=== PATIENT | male | born 1980 | race American Indian/Alaskan Native ===

== ENCOUNTER 2018-10-11 20:33 | Emergency (ER) | payer BC ==
--- NOTE | 2018-10-11 21:01 | Emergency Department Report ---
Blank Doc - Documentation Documentation: This is a 38-year-old male that presents with right middle finger lac. This initial assessment/diagnostic orders/clinical plan/treatment(s) is/are subject to change based on patient's health status, clinical progression and re- assessment by fellow clinical providers in the ED. Further treatment and workup at subsequent clinical providers discretion. Patient/guardians urged not to elope from the ED as their condition may be serious if not clinically assessed and managed. Initial orders include: 1- Patient sent to [facility] for further evaluation and treatment
[2018-10-11 21:02] VITALS: BP 147/96
[2018-10-11] MEDS ORDERED: XYLOCAINE 1% MPF 5 mL INFILTRATI ONE (23:00)
[2018-10-11] MEDS ORDERED: NORCO 5/325 PO ONE (23:00)
[2018-10-11] MEDS ORDERED: BOOSTRIX IM ONE (23:00)
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
== END 2018-10-12 00:02 | disposition home or self-care (01) ==
LOC: ED 20:33
DX: S61.212A Laceration without foreign body of right middle finger without damage to nail, initial encounter (principal); F17.200 Nicotine dependence, unspecified, uncomplicated; F12.10 Cannabis abuse, uncomplicated; W27.8XXA Contact with other nonpowered hand tool, initial encounter; Y93.89 Activity, other specified; Y92.89 Other specified places as the place of occurrence of the external cause; Y99.8 Other external cause status
CPT/HCPCS: 90471; 90715; 99282

== ENCOUNTER 2019-12-28 10:55 | Emergency (ER) | payer SELFPAY ==
[2019-12-28 11:30] VITALS: BP 154/76
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
[2019-12-28] MEDS ORDERED: IBUPROFEN 800 MG TAB PO ONE (13:46)
== END 2019-12-28 14:05 | disposition home or self-care (01) ==
LOC: ED 10:55
DX: S39.012A Strain of muscle, fascia and tendon of lower back, initial encounter (principal); S16.1XXA Strain of muscle, fascia and tendon at neck level, initial encounter; Z79.899 Other long term (current) drug therapy; Z87.891 Personal history of nicotine dependence; V89.2XXA Person injured in unspecified motor-vehicle accident, traffic, initial encounter; Y93.89 Activity, other specified; Y92.410 Unspecified street and highway as the place of occurrence of the external cause; Y99.8 Other external cause status
CPT/HCPCS: 72040; 72070; 72100; 99283

== ENCOUNTER 2020-04-30 21:22 | Emergency (ER) | payer SELFPAY ==
[2020-04-30 22:04] VITALS: BP 145/76
[2020-04-30] MEDS ORDERED: IBUPROFEN 600 MG TAB PO ONE (22:59)
[2020-04-30] MEDS ORDERED: ACETAMINOPHEN 500 MG TAB PO ONE (22:59)
[2020-04-30] MEDS ORDERED: LIDOCAINE (1%) 10 MG/1 ML VIAL 20 ML MDV INFILTRATI ONE (22:59)
--- NOTE | 2020-04-30 23:41 | Emergency Department Report ---
- General Chief Complaint: Wound/Laceration Stated Complaint: LACERATION TO RIGHT HAND/MIDDLE FINGER Source: patient Mode of arrival: Ambulatory Limitations: No Limitations - History of Present Illness Initial Comments: Patient is a 39-year-old -Cyp[place] male with no past medical history presents to the ED with complaint of acute onset persistent painful bleeding distal right index finger, right middle finger and right thumb bleeding laceration after he accidentally got cut by the blade of one of his drone toys about 3 hours ago. Patient states that he accidentally forgot that the blade was still rotating when he inserted his hand to pick it up from the ground. Patient states that he is up-to-date with all his vaccinations including tetanus vaccination. Patient denies numbness and tingling or weakness of right hand, dizziness, syncope, nausea, vomiting, shortness of breath, fall, neck pain or change in vision. -: Sudden, hour(s) (3) Location: other (right middle finger; right index finger and right palm lacerations) Extremity Location: Right: Hand (Right index, right middle fingers and palm lacerations) Place: home Patient Tetanus UTD: Yes Context: accidental, sharp object use Associated Symptoms: pain. denies: loss of feeling/numbness, suspect foreign body present, unable to move injured part, weakness followed by dizziness, nausea/vomiting, fever, other - Related Data Previous Rx's Medication Instructions Recorded Last Taken Type Cephalexin [Keflex] 500 mg PO TID #30 capsule 10/11/18 Unknown Rx traMADoL [Ultram] 50 mg PO Q6HR PRN #12 tablet 10/11/18 Unknown Rx methOCARBAMOL [Robaxin TAB] 1,500 mg PO Q8H PRN #22 tablet 12/28/19 Unknown Rx Ibuprofen [Motrin 800 MG tab] 800 mg PO Q8HR PRN #30 tablet 04/30/20 Unknown Rx cephALEXin [Keflex] 500 mg PO Q12HR #20 cap 04/30/20 Unknown Rx Allergies Allergy/AdvReac Type Severity Reaction Status Date / Time No Known Allergies Allergy Unverified 10/11/18 20:42 ED Review of Systems ROS: Stated complaint: LACERATION TO RIGHT HAND/MIDDLE FINGER Other details as noted in HPI Constitutional: denies: chills, fever Eyes: denies: eye pain, eye discharge, vision change ENT: denies: ear pain, throat pain Respiratory: denies: cough, shortness of breath, wheezing Cardiovascular: denies: chest pain, palpitations Endocrine: no symptoms reported Gastrointestinal: denies: abdominal pain, nausea, diarrhea Genitourinary: denies: urgency, dysuria Musculoskeletal: arthralgia (Bleed bleeding distal right middle and right index finger lacerations as well as right palm laceration). denies: back pain, joint swelling Skin: other (Bleeding) laceration, distal right middle and right index finger lacerations). denies: rash, lesions Neurological: denies: headache, weakness, paresthesias Psychiatric: denies: anxiety, depression Hematological/Lymphatic: denies: easy bleeding, easy bruising ED Past Medical Hx - Social History Smoking Status: Never Smoker Substance Use Type: None - Medications Home Medications: Home Medications Medication Instructions Recorded Confirmed Last Taken Type Cephalexin [Keflex] 500 mg PO TID #30 capsule 10/11/18 Unknown Rx traMADoL [Ultram] 50 mg PO Q6HR PRN #12 tablet 10/11/18 Unknown Rx methOCARBAMOL [Robaxin TAB] 1,500 mg PO Q8H PRN #22 tablet 12/28/19 Unknown Rx Ibuprofen [Motrin 800 MG tab] 800 mg PO Q8HR PRN #30 tablet 04/30/20 Unknown Rx cephALEXin [Keflex] 500 mg PO Q12HR #20 cap 04/30/20 Unknown Rx ED Physical Exam - General Limitations: No Limitations General appearance: alert, in no apparent distress - Head Head exam: Present: atraumatic, normocephalic, normal inspection - Eye Eye exam: Present: normal appearance, PERRL, EOMI Pupils: Present: normal accommodation - ENT ENT exam: Present: normal exam, normal orophraynx, mucous membranes moist, TM's normal bilaterally, normal external ear exam - Neck Neck exam: Present: normal inspection, full ROM. Absent: tenderness, lymphadenopathy - Respiratory Respiratory exam: Present: normal lung sounds bilaterally. Absent: respiratory distress, wheezes, rales, chest wall tenderness, accessory muscle use, decreased breath sounds, prolonged expiratory - Cardiovascular Cardiovascular Exam: Present: regular rate, normal rhythm, normal heart sounds. Absent: systolic murmur, diastolic murmur, rubs, gallop - GI/Abdominal GI/Abdominal exam: Present: soft, normal bowel sounds. Absent: tenderness, guarding, rebound, hyperactive bowel sounds, hypoactive bowel sounds - Extremities Exam Extremities exam: Present: normal inspection, full ROM, tenderness (Palpable tenderness of distal right middle and index fingers, as well as right due to bleeding 3 cm, 2 cm and 4 cm lacerations respectively), normal capillary refill. Absent: pedal edema, joint swelling, calf tenderness - Back Exam Back exam: Present: normal inspection, full ROM. Absent: tenderness, CVA tenderness (R), CVA tenderness (L), muscle spasm, paraspinal tenderness, vertebral tenderness - Neurological Exam Neurological exam: Present: alert, oriented X3, CN II-XII intact, normal gait, reflexes normal - Psychiatric Psychiatric exam: Present: normal affect, normal mood - Skin Skin exam: Present: warm, dry, intact, normal color, other (Bleeding 3 cm, 2 cm and 4 cm lacerations on distal right middle and right index fingers as well as right respectively). Absent: rash ED Course Vital Signs 04/30/20 21:49 Temperature 97.9 F Pulse Rate 54 L Respiratory 20 Rate Blood Pressure 145/76 O2 Sat by Pulse 98 Oximetry - Laceration /Wound Repair Right Distal Finger Wound Location: upper extremity (distal right index finger) Wound Length (cm): 2 Wound's Depth, Shape: superficial, linear Wound Explored: contaminated Irrigated w/ Saline (ccs): 50 Betadine Prep?: Yes Anesthesia: 1% Lidocaine Volume Anesthetic (ccs): 3 Wound Debrided: extensive Wound Repaired With: sutures Suture Size/Type: 4:0, proline Number of Sutures: 3 Sterile Dressing Applied?: Yes Progress: The patient tolerated the procedure well. The wound was then dressed appropr iately and the patient discharged home on pain medication and prophylactic antibiotics. Right Finger Wound Location: upper extremity (distal right middle finger) Wound Length (cm): 4 Wound's Depth, Shape: superficial, linear Wound Explored: contaminated Irrigated w/ Saline (ccs): 50 Betadine Prep?: Yes Anesthesia: 1% Lidocaine Volume Anesthetic (ccs): 3 Wound Debrided: extensive Wound Repaired With: sutures Suture Size/Type: 4:0, proline Number of Sutures: 4 Layer Closure?: No Sterile Dressing Applied?: Yes Progress: Patient tolerated procedure well. The wound was then dressed appropriately and the patient was discharged home on pain medication and prophylactic antibiotics. Right Palm Hand Wound Location: upper extremity (right palm) Wound Length (cm): 5 Wound's Depth, Shape: superficial, linear Wound Explored: contaminated Irrigated w/ Saline (ccs): 100 Betadine Prep?: Yes Anesthesia: 1% Lidocaine Volume Anesthetic (ccs): 4 Wound Debrided: extensive Wound Repaired With: sutures Suture Size/Type: 4:0, proline Number of Sutures: 5 Layer Closure?: No Sterile Dressing Applied?: No Progress: Patient tolerated the procedure well. The wound was then cleaned thoroughly and dressed appropriately. Patient was discharged home on antibiotics and pain medications. ED Medical Decision Making - Medical Decision Making This is a 39-year-old -[place] male with no past medical history presents to the ED with complaint of acute onset persistent painful bleeding distal right index finger, right middle finger and right thumb bleeding laceration after he accidentally got cut by the blade of one of his drone toys about 3 hours ago. Patient states that he accidentally forgot that the blade was still rotating when he inserted his hand to pick it up from the ground. Patient states that he is up-to-date with all his vaccinations including tetanus vaccination. In the ED, patient is alert and oriented x3 and is not in distress. Patient was treated for pain in the ED. The right hand bleeding lacerations were cleaned thoroughly and sutured per protocol. Patient tolerated the procedure well. The wounds were then dressed appropriately and the patient was discharged home on pain medications and prophylactic antibiotics and was advised to follow-up with his primary care physician in 7 to 10 days for reevaluation. Patient was advised return to the ED immediately if symptoms get worse, otherwise return to the ED or to his primary care physician in 12 to 14 days for suture removal. - Differential Diagnosis Finger lacerations; Hand lacerations; Puncture wound; contusion Critical care attestation.: If time is entered above; I have spent that time in minutes in the direct care of this critically ill patient, excluding procedure time. ED Disposition Clinical Impression: Laceration of right middle finger w/o foreign body w/o damage to nail Qualifiers: Encounter type: initial encounter Qualified Code(s): S61.212A - Laceration without foreign body of right middle finger without damage to nail, initial enc ounter Laceration of right index finger w/o foreign body w/o damage to nail Qualifiers: Encounter type: initial encounter Qualified Code(s): S61.210A - Laceration without foreign body of right index finger without damage to nail, initial encounter Laceration of right palm Qualifiers: Encounter type: initial encounter Qualified Code(s): S61.411A - Laceration without foreign body of right hand, initial encounter Disposition: TO HOME OR SELFCARE Is pt being admited?: No Does the pt Need Aspirin: No Condition: Stable Instructions: Wound Infection, [id number], Laceration Care, Adult, [id number] Additional Instructions: Take pain medication with food, drink plenty of fluids and follow-up with primary care physician in 7 to 10 days for reevaluation. Return to the ED immediately if symptoms get worse. Otherwise return to the ED or to your primary care physician in 12 to 14 days for suture removal Prescriptions: cephALEXin [Keflex] 500 mg PO Q12HR #20 cap Ibuprofen [Motrin 800 MG tab] 800 mg PO Q8HR PRN #30 tablet PRN Reason: pain Referrals: [facility] [Provider Group] - 7-10 days Time of Disposition: 23:45 Print Language: [id number]
== END 2020-05-01 00:50 | disposition home or self-care (01) ==
LOC: ED 21:22
DX: S61.212A Laceration without foreign body of right middle finger without damage to nail, initial encounter (principal); S61.210A Laceration without foreign body of right index finger without damage to nail, initial encounter; S61.411A Laceration without foreign body of right hand, initial encounter; Z79.899 Other long term (current) drug therapy; W45.8XXA Other foreign body or object entering through skin, initial encounter; Y93.89 Activity, other specified; Y92.009 Unspecified place in unspecified non-institutional (private) residence as the place of occurrence of the external cause; Y99.8 Other external cause status